=== PATIENT | male | born 1950 | race Caucasian/White ===

== ENCOUNTER 2023-04-25 06:54 | Day surgery (SDC) | payer MEDICARE ==
[2023-04-24 10:27] LABS: ALBUMIN 3.7 G/DL (3.4-5.0); ANION GAP 9 (8-16); BASOPHILS % (AUTO) 0.4 % (0-1); BLOOD UREA NITROGEN 15 MG/DL (7-18); BUN/CREATININE RATIO 16.3 (10.0-20.0); CALCIUM 8.5 MG/DL (8.5-10.1); CHLORIDE 108 MMOL/L (99-107); CREATININE 0.92 MG/DL (0.60-1.10); EOSINOPHILS # (AUTO) 0.3 X10'3 (0-0.9); GLUCOSE 97 MG/DL (70-104); HEMATOCRIT 43.7 % (42.0-52.0); HEMOGLOBIN 14.9 g/dl (14.0-17.9); LYMPHOCYTES # (AUTO) 1.7 X10'3 (1.1-4.8); MEAN CORPUSCULAR HEMOGLOBIN 33.6 PG (27.0-31.0); MEAN CORPUSCULAR HGB CONC 34.2 g/dL (33.0-36.5); MEAN CORPUSCULAR VOLUME 98.4 FL (78-98); MONOCYTES # (AUTO) 0.5 X10'3 (0-0.9); MONOCYTES % (AUTO) 9.6 % (2-12); NEUTROPHILS # (AUTO) 2.7 X10'3 (1.8-7.7); PLATELET COUNT 178 X10'3 (140-440); POTASSIUM 4.6 MMOL/L (3.5-5.1); RED BLOOD COUNT 4.44 X10'6 (4.70-6.10); RED CELL DISTRIBUTION WIDTH 13.3 % (11.5-14.5); SODIUM 142 MMOL/L (135-145); WHITE BLOOD COUNT 5.1 X10'3 (4.5-11.0); eGFR 81 ML/MIN
[2023-04-24 10:30] LABS: INR 1.4 INR; PROTHROMBIN TIME 14.5 SECONDS (9.0-12.0)
[~2023-04-25] VITALS: Ht 193 cm; Wt 130.4 kg
[2023-04-25] MEDS ORDERED: normal saline 1000ml 1,000 ML IV SCH (07:10)
[2023-04-25] MEDS ORDERED: MIDAZolam 1mg/ml 10ml vial IV ONE (07:10)
[2023-04-25] MEDS ORDERED: amiodarone 150mg/dext, iso-os 100 ML IV ONE (07:10)
[2023-04-25] MEDS ORDERED: morphine 10mg/ml inj. IV ONE (07:10)
[2023-04-25] MEDS ORDERED: LORazepam 0.5 MG tablet PO ONE (07:10)
[2023-04-25] MEDS ORDERED: atropine 0.1mg/ml 10ml syringe IV ONE (07:10)
[2023-04-25] MEDS ORDERED: diphenhydrAMINE 25mg capsule PO ONE (07:10)
[2023-04-25] MEDS ORDERED: LISI5TAB22 PO (08:10)
[2023-04-25] MEDS ORDERED: CARV25TA5 PO (08:10)
[2023-04-25] MEDS ORDERED: ZINC220T3 PO (08:10)
[2023-04-25] MEDS ORDERED: FLAX100032 PO (08:10)
[2023-04-25] MEDS ORDERED: SPIR25TA5 PO (08:10)
[2023-04-25] MEDS ORDERED: RIVA20TA PO (08:10)
[2023-04-25] MEDS ORDERED: OMEG-15 PO (08:10)
[2023-04-25] MEDS ORDERED: FLEC100T2 PO (08:10)
[2023-04-25] MEDS ORDERED: NIAC500C8 PO (08:10)
[2023-04-25] MEDS ORDERED: CHOL20004 PO (08:10)
[2023-04-25] MEDS ORDERED: CARV-50 PO (08:10)
[2023-04-25] MEDS ORDERED: ASCO500C17 PO (08:10)
[2023-04-25] MEDS ORDERED: RED600TA PO (08:10)
[2023-04-25] MEDS ORDERED: MAGN400C PO (08:10)
== END 2023-04-25 08:05 | disposition home or self-care (01) ==
LOC: SSTAY O 06:54
PROVIDERS: ATTEND Internal Medicine Cardiovascular Disease
DX: I48.91 Unspecified atrial fibrillation (principal); Z53.8 Procedure and treatment not carried out for other reasons; I42.9 Cardiomyopathy, unspecified; I71.20 Thoracic aortic aneurysm, without rupture, unspecified; I10 Essential (primary) hypertension; E78.5 Hyperlipidemia, unspecified; E66.3 Overweight; Z68.34 Body mass index [BMI] 34.0-34.9, adult; Z88.8 Allergy status to other drugs, medicaments and biological substances; Z96.653 Presence of artificial knee joint, bilateral; Z98.890 Other specified postprocedural states; Z79.899 Other long term (current) drug therapy; Z79.01 Long term (current) use of anticoagulants; Z80.0 Family history of malignant neoplasm of digestive organs; Z83.3 Family history of diabetes mellitus; Z82.49 Family history of ischemic heart disease and other diseases of the circulatory system
CPT/HCPCS: 36415; 80048; 85025; 85610; 93005